=== PATIENT | female | born 1960 | race Two or more races ===

== ENCOUNTER 2019-03-10 12:54 | Emergency (ER) | payer SELFPAY ==
[~2019-03-10] VITALS: Ht 152.4 cm; Wt 66.7 kg
--- NOTE | 2019-03-10 13:00 | NUR ---
ADMIT PT TO RM 5B , AMBULATORY ACCOMPANIED BY THE DAUGHTER, ALERT AND ORIENTEDX3. CHIEF C/O HEADACHES. SEEN AND EXAMINED BY . BLOOD DRAWN FROM THE LAB.
[2019-03-10] MEDS ORDERED: MECLIZINE HCL 25 MG TABLET PO ONE (13:15)
[2019-03-10] MEDS ORDERED: ONDANSETRON ODT 4 MG TAB.RAPDIS SL ONE (13:15)
--- NOTE | 2019-03-10 13:40 | NUR ---
PT TAKEN DOWN TO CT SCAN FOR CT OF THE HEAD.
[2019-03-10 13:51] LABS: BASOPHILS % (AUTO) 0.7 % (0.0-2.0); EOSINOPHILS # (AUTO) 0.3 K/uL (0.0-0.7); EOSINOPHILS % (AUTO) 4.3 % (0.0-7.0); HEMATOCRIT 40.3 % (31.2-41.9); HEMOGLOBIN 13.7 g/dL (10.9-14.3); MEAN CORPUSCULAR HEMOGLOBIN 30.1 uug (24.7-32.8); MEAN CORPUSCULAR HGB CONC 34 g/dL (32.3-35.6); MEAN CORPUSCULAR VOLUME 88.7 fL (75.5-95.3); MONOCYTES # (AUTO) 0.3 K/uL (2.0-10.0); MONOCYTES % (AUTO) 4.4 % (0.0-11.0); NEUTROPHILS # (AUTO) 3.9 K/uL (1.8-8.9); NEUTROPHILS % (AUTO) 59.6 % (38.5-71.5); PLATELET COUNT (AUTO) 191 K/uL (179-408); RED BLOOD CELL COUNT(AUTO) 4.54 MIL/uL (3.63-4.92); WHITE BLOOD COUNT (AUTO) 6.6 K/uL (3.8-11.8)
[2019-03-10] MEDS ORDERED: ONDANSETRON ODT 4 MG TAB.RAPDIS ONE (13:51)
[2019-03-10] MEDS ORDERED: MECLIZINE HCL 25 MG TABLET ONE (13:51)
[2019-03-10 13:59] LABS: BILIRUBIN,DIRECT 0.3 mg/dL (0.0-0.2); BILIRUBIN,TOTAL 1.7 mg/dL (0.2-1.0); CREATININE 0.6 mg/dL (0.6-1.3); POTASSIUM 3.6 mmol/L (3.5-5.1); TOTAL PROTEIN, SERUM 8.2 g/dL (6.4-8.2)
--- NOTE | 2019-03-10 14:00 | NUR ---
PT IS MEDICATED FOR DIZZINESS AND NAUSEA PER MD ORDER. PT SLEEPING INTERMITTENTLY.
[2019-03-10 14:28] LABS: *BILIRUBIN,URIN NEGATIVE (NEGATIVE); *BLOOD, URINE NEGATIVE (NEGATIVE); *CLARITY,URINE CLEAR (CLEAR); *COLOR,URINE YELLOW (YELLOW); *KETONES,URINE NEGATIVE (NEGATIVE); *UROBILINOGEN,URINE 0.2 E.U./dl (NORMAL); LEUKOCYTE ESTERASE ,URINE TRACE (NEGATIVE); NITRITE, URINE NEGATIVE (NEGATIVE); UGLUCOSE TRACE (NEGATIVE)
[2019-03-10 14:40] LABS: MUCUS,URINE FEW /LPF (0-FEW); SQUAMOUS EPITHELIAL CELL,UR MODERATE /HPF (NONE SEEN); WBC,URINE 0-3 /HPF (0-3)
--- NOTE | 2019-03-10 15:35 | NUR ---
MD SPOKEN TO PT. DC INSTRUCTIONS AND PRESCRIPTIONS GIVEN WITH GOOD UNDERSTANDING. CONDITION IS IMPROVED. DISCHARGED HOME AMBULATORY ACCOMPANIED BY DAUGHTER.
[2019-03-10 16:01] VITALS: BP 150/80
== END 2019-03-10 15:35 | disposition home or self-care (01) ==
LOC: ER 12:54
DX: H81.10 Benign paroxysmal vertigo, unspecified ear (principal); E11.9 Type 2 diabetes mellitus without complications; J02.9 Acute pharyngitis, unspecified; Z88.2 Allergy status to sulfonamides
CPT/HCPCS: 36415; 70030-TC; 70450; 85025; 85730; 93005; A4663; J8597; Q0162